=== PATIENT | male | born 1980 | race Two or more races ===

== ENCOUNTER 2019-02-22 04:50 | Emergency (ER) | payer OTHER ==
[~2019-02-22] VITALS: Ht 167.6 cm; Wt 106.6 kg
== END 2019-02-23 17:45 | disposition home or self-care (01) ==
LOC: ER 04:50
DX: I25.118 Atherosclerotic heart disease of native coronary artery with other forms of angina pectoris (principal); I10 Essential (primary) hypertension; R53.1 Weakness; R06.09 Other forms of dyspnea; G40.89 Other seizures; R41.0 Disorientation, unspecified; I87.2 Venous insufficiency (chronic) (peripheral); Z95.818 Presence of other cardiac implants and grafts

== ENCOUNTER 2019-10-17 08:26 | Outpatient (CLI) | payer OTHER | END 2019-10-17 10:54 | disposition home or self-care (01) | LOC: NUCLEAR 08:26 | DX: I20.1 Angina pectoris with documented spasm (principal) | CPT/HCPCS: 78452; 93017; A9500; J0153 ==

== ENCOUNTER 2020-05-15 18:51 | Emergency (ER) | payer OTHER ==
[~2020-05-15] VITALS: Ht 172.7 cm; Wt 108.0 kg
[2020-05-15] MEDS ORDERED: FORTAMET500 MG (19:11)
[2020-05-15] MEDS ORDERED: LIPITOR40 M1 (19:12)
[2020-05-15] MEDS ORDERED: CHILDREN'S ASPI81 MG (19:12)
[2020-05-15] MEDS ORDERED: BRILINTA90 MG (19:12)
[2020-05-15] MEDS ORDERED: [UNRECOGNIZED DRUG - OTHER] (19:12)
[2020-05-15] MEDS ORDERED: ALLEGRA ALLERG180 MG PO (19:31)
[2020-05-15] MEDS ORDERED: KETO10TA2 PO (19:31)
[2020-05-15] MEDS ORDERED: BACTRIM DS TAB1 EACH PO (19:31)
== END 2020-05-15 19:50 | disposition home or self-care (01) ==
LOC: ER 18:51
DX: L02.31 Cutaneous abscess of buttock (principal); L27.2 Dermatitis due to ingested food; T78.1XXA Other adverse food reactions, not elsewhere classified, initial encounter; X58.XXXA Exposure to other specified factors, initial encounter